=== PATIENT | male | born 1970 | race Caucasian/White ===

== ENCOUNTER 2020-03-26 12:40 | Emergency (ER) | payer BC ==
[2020-03-26 14:24] LABS: Absolute Lymphocytes (CBC) 1.8 K/uL (0.7-4.9); Hematocrit 48.2 % (39.6-49.0); Lymphocytes % 12.6 % (15.3-44.8); MPV 8.5 fL (7.6-11.3); RBC Red Blood Cell Count 5.06 M/uL (4.33-5.43)
[2020-03-26 14:50] LABS: ALT/SGPT 240 U/L (12-78); AST/SGOT 103 U/L (15-37); Alkaline Phosphatase 203 U/L (45-117); BUN Blood Urea Nitrogen 8 mg/dL (7-18); Bicarbonate 22 mmol/L (21-32); Bilirubin Direct 0.4 mg/dL (0-0.2); Bilirubin Total 1.6 mg/dL (0.2-1.0); Glucose Level 164 mg/dL (74-106); Potassium 4.1 mmol/L (3.5-5.1); Protein, Total 8.3 g/dL (6.4-8.2); Sodium Level 137 mmol/L (136-145)
[2020-03-26] MEDS ORDERED: ONDANSETRON 4 MG/2 ML VIAL ONE (15:05)
[2020-03-26] MEDS ORDERED: NA CHLORIDE 0.9% 1,000 ML ONE (15:05)
[2020-03-26] MEDS ORDERED: FAMOTIDINE 20 MG/2 ML VIAL IV ONE (15:06)
[2020-03-26 15:20] LABS: Protime INR 1.08
--- NOTE | 2020-03-26 16:14 | RAD REPORT ---
EXAM DESCRIPTION: RAD - Chest Single View - 03/26/2020 3:36 pm CLINICAL HISTORY: Cough;Dyspnea COMPARISON: None TECHNIQUE: AP portable chest image was obtained 03/26/2020 3:36 pm . FINDINGS: Lungs are clear. Heart and vasculature are normal. No measurable pleural effusion and no p neumothorax. No acute bony abnormality seen. No acute aortic findings suspected. IMPRESSION: No acute cardiopulmonary process.
--- NOTE | 2020-03-26 17:05 | RAD REPORT ---
EXAM DESCRIPTION: CT - Abdomen Pelvis W Contrast - 03/26/2020 4:21 pm CLINICAL HISTORY: ABD PAIN COMPARISON: No comparisons TECHNIQUE: Biphasic, helical CT imaging of the abdomen and pelvis was performed following 100 ml non -ionic IV contrast. No oral contrast given. All CT scans are performed using dose optimization technique as appropriate and may include automated exposure control or mA/KV adjustment according to patient size. FINDINGS: No suspicious findings in the lung bases. Diffuse fatty infiltration of the liver present focal liver lesion. No portal vein abnormality. Pancr eas and spleen show no suspicious findings. Gallbladder and biliary tree are also without suspicious finding. Symmetric renal function is seen with no hydronephrosis or suspicious renal mass. No pyelonephritis o r acute parenchymal process. No bladder abnormalities. No adrenal abnormalities. No dilated bowel loops or bowel wall thickening. Appendix is normal. No free air, free fluid or infla mmatory stranding. No hernia, mass or bulky lymphadenopathy. No suspicious bony findings. IMPRESSION: Contrast enhanced CT abdomen and pelvis showing no acute or emergent finding. Diffuse fatty infiltration of the liver.
--- NOTE | 2020-03-26 17:23 | EDPHYS ---
Physician Documentation [facility] Name: Seth Doyle Age: 49 yrs Sex: Male : 1970 Arrival Date: 03/26/2020 Time: 12:43 Bed 10 Private MD: ED Physician Ba Farfan HPI: 03/26 14:15 This 49 yrs old Male presents to ER via Wheelchair with complaints of Asthma kb Exacerbation, Alcohol Withdrawal. 14:15 The patient or guardian reports cough, that is intermittent, described as mild, kb difficulty breathing, flu symptoms, myalgias. Onset: The symptoms/episode began/occurred this morning. Severity of symptoms: At their worst the symptoms were moderate, in the emergency department the symptoms are unchanged. Modifying factors: The symptoms are alleviated by nothing, the symptoms are aggravated by nothing. Associated signs and symptoms: Pertinent positives: nausea, vomiting, Pertinent negatives: chest pain, diarrhea, ear ache, fever, rhinorrhea, sore throat. The patient has not experienced similar symptoms in the past. The patient has not recently seen a physician. Pt reports malaise, cough, shortness of breath, headache, nausea and vomiting that started this morning. States "I think I drank too much yesterday.". Historical: - Allergies: 12:51 No Known Allergies; iw - Home Meds: 12:51 Ventolin Rotahaler/Rotacaps Inhl daily [Active]; citalopram oral [Active]; iw - PMHx: 12:51 Asthma; iw - PSHx: 12:51 wrist; iw - Social history:: Smoking status: Patient denies any tobacco usage or history of. Patient uses alcohol. ROS: 14:14 ENT: Negative for injury, pain, and discharge, Cardiovascular: Negative for chest pain, kb palpitations, and edema, Back: Negative for injury and pain, MS/Extremity: Negative for injury and deformity, Skin: Negative for injury, rash, and discoloration. 14:14 Constitutional: Positive for chills, malaise. 14:14 Respiratory: Positive for cough, shortness of breath. 14:14 Abdomen/GI: Positive for nausea and vomiting. 14:14 Neuro: Positive for headache. Exam: 14:14 Head/Face: Normocephalic, atraumatic. Chest/axilla: Normal chest wall appearance and kb motion. Nontender with no deformity. No lesions are appreciated. Cardiovascular: Regular rate and rhythm with a normal S1 and S2. No gallops, murmurs, or rubs. Normal PMI, no JVD. No pulse deficits. Respiratory: Lungs have equal breath sounds bilaterally, clear to auscultation and percussion. No rales, rhonchi or wheezes noted. No increased work of breathing, no retractions or nasal flaring. Abdomen/GI: Soft, non-tender, with normal bowel sounds. No distension or tympany. No guarding or rebound. No evidence of tenderness throughout. Skin: Warm, dry with normal turgor. Normal color with no rashes, no lesions, and no evidence of cellulitis. MS/ Extremity: Pulses equal, no cyanosis. Neurovascular intact. Full, normal range of motion. Neuro: Awake and alert, GCS 15, oriented to person, place, time, and situation. Cranial nerves II-XII grossly intact. Motor strength 5/5 in all extremities. Sensory grossly intact. Cerebellar exam normal. Normal gait. 14:14 Constitutional: The patient appears alert, awake, uncomfortable. Vital Signs: 12:47 BP 146 / 105; Pulse 110; Resp 20 S; Temp 99.1; Pulse Ox 97% on R/A; Weight 97.52 kg; iw Height 6 ft. 1 in. (185.42 cm); 15:00 BP 146 / 100; Pulse 115; Resp 20 S; Pulse Ox 97% on R/A; iw 17:29 BP 164 / 100; Pulse 90; Resp 18 S; Pulse Ox 97% on R/A; iw 12:47 Body Mass Index 28.37 (97.52 kg, 185.42 cm) iw MDM: 14:02 Patient medically screened. kb 14:13 Data reviewed: vital signs, nurses notes. Data interpreted: Pulse oximetry: on room air kb is 97 %. Interpretation: normal. 17:21 Counseling: I had a detailed discussion with the patient and/or guardian regarding: the kb historical points, exam findings, and any diagnostic results supporting the discharge/admit diagnosis, lab results, radiology results, the need for outpatient follow up, a family practitioner, to return to the emergency department if symptoms worsen or persist or if there are any questions or concerns that arise at home. ED course: Pt requests a neb treatment because his inhaler is empty. Will prescribe new inhaler. Educated on elevated liver enzymes. Pt states he is aware and takes milk thistle. 03/26 14:03 Order name: Acetaminophen kb 03/26 14:03 Order name: Basic Metabolic Panel kb 03/26 14:03 Order name: CBC with Diff; Complete Time: 14:29 kb 03/26 14:03 Order name: ETOH Level; Complete Time: 14:51 kb 03/26 14:03 Order name: Hepatic Function; Complete Time: 14:51 kb 03/26 14:03 Order name: PT-INR; Complete Time: 15:24 kb 03/26 14:03 Order name: Ptt, Activated; Complete Time: 15:24 kb 03/26 14:03 Order name: Salicylate; Complete Time: 15:14 kb 03/26 14:03 Order name: Chest Single View XRAY; Complete Time: 16:15 kb 03/26 14:04 Order name: Acetaminophen Level; Complete Time: 14:51 EDMS 03/26 14:04 Order name: Basic Metabolic Panel; Complete Time: 14:51 EDMS 03/26 15:46 Order name: SARS-COV-2 RT PCR; Complete Time: 15:49 EDMS 03/26 15:50 Order name: CT Abd/Pelvis - IV Contrast Only; Complete Time: 17:08 kb 03/26 14:03 Order name: EKG; Complete Time: 14:04 kb 03/26 14:03 Order name: EKG - Nurse/Tech; Complete Time: 14:07 kb 03/26 14:03 Order name: IV Saline Lock; Complete Time: 14:07 kb 03/26 14:03 Order name: Labs collected and sent; Complete Time: 14:08 kb 03/26 14:03 Order name: Urine Dipstick-Ancillary (obtain specimen) kb 03/26 14:26 Order name: Labs - recollect needed: blue top not filled all the way; Complete Time: bd 15:00 03/26 17:13 Order name: Vital Signs; Complete Time: 17:29 kb Administered Medications: 15:00 Drug: Pepcid 20 mg Route: IVP; Site: left antecubital; iw 15:01 Drug: NS 0.9% 1000 ml Route: IV; Rate: 1000 ml; Site: left antecubital; iw 15:01 Drug: Zofran (Ondansetron) 4 mg Route: IVP; Site: left antecubital; iw 17:29 Drug: Albuterol 2.5 mg Route: Inhalation; Disposition: 18:22 Co-signature as Attending Physician, Ba Farfan MD. ma2 Disposition: 03/26/20 17:23 Discharged to Home. Impression: Abnormal results of liver function studies, Acute upper respiratory infection, unspecified. - Condition is Stable. - Discharge Instructions: Upper Respiratory Infection, Adult, [id number], Alcoholic Liver Disease, [id number]. - Prescriptions for Ventolin HFA 90 mcg/actuation Inhalation HFA aerosol inhaler - inhale 2 puff by INHALATION route every 4 hours; 1 Inhaler. - Medication Reconciliation Form, Thank You Letter, Antibiotic Education, Prescription Opioid Use form. - Follow up: Emergency Department; When: As needed; Reason: Worsening of condition. Follow up: Private Physician; When: 2 - 3 days; Reason: Recheck today's complaints, Continuance of care, Re-evaluation by your physician. Signatures: Dispatcher [employer] [facility] Bebe Malcolm, SECRETARIAL STENOGRAPHER-C SECRETARIAL STENOGRAPHER-CkGabriella Mckoy Irene, Ba Ram RN, MD MD ma2 Corrections: (The following items were deleted from the chart) 14:37 13:47 CORONAVIRUS+Z ordered. [facility] 18:20 17:23 03/26/2020 17:23 Discharged to Home. Impression: Abnormal results of liver iw function studies; Acute upper respiratory infection, unspecified. Condition is Stable. Forms are Medication Reconciliation Form, Thank You Letter, Antibiotic Education, Prescription Opioid Use. Follow up: Emergency Department; When: As needed; Reason: Worsening of condition. Follow up: Private Physician; When: 2 - 3 days; Reason: Recheck today's complaints, Continuance of care, Re-evaluation by your physician. kb
--- NOTE | 2020-03-26 17:23 | ER ---
Nurse's Notes [facility] Name: Seth Doyle Age: 49 yrs Sex: Male : 1970 Arrival Date: 03/26/2020 Time: 12:43 Bed 10 Private MD: Diagnosis: Abnormal results of liver function studies;Acute upper respiratory infection, unspecified Presentation: 03/26 12:47 Chief complaint: Patient states: spent the night in [place] and it was 55 degrees and woke iw up this morning and was coughing and sick, was dry heaving and has heart burn that's making him throw up, also thinks he may be withdrawing from ETOH, last drink was yesterday but had not had a drink in two weeks. Coronavirus screen: chills, cough unrelated to allergies. Ebola Screen: Patient negative for fever greater than or equal to 101.5 degrees Fahrenheit, and additional compatible Ebola Virus Disease symptoms Patient denies exposure to infectious person. Patient denies travel to an Ebola-affected area in the 21 days before illness onset. No symptoms or risks identified at this time. Initial Sepsis Screen: Does the patient meet any 2 criteria? No. Patient's initial sepsis screen is negative. Does the patient have a suspected source of infection? No. Patient's initial sepsis screen is negative. Risk Assessment: Do you want to hurt yourself or someone else? Patient reports no desire to harm self or others. Onset of symptoms was March 26, 2020. 12:47 Method Of Arrival: Wheelchair iw 12:47 Acuity: GREGORY 2 iw Historical: - Allergies: 12:51 No Known Allergies; iw - Home Meds: 12:51 Ventolin Rotahaler/Rotacaps Inhl daily [Active]; citalopram oral [Active]; iw - PMHx: 12:51 Asthma; iw - PSHx: 12:51 wrist; iw - Social history:: Smoking status: Patient denies any tobacco usage or history of. Patient uses alcohol. Screenin:14 Abuse screen: Denies threats or abuse. Denies injuries from another. Nutritional iw screening: No deficits noted. Tuberculosis screening: No symptoms or risk factors identified. Fall Risk IV access (20 points). Assessment: 14:13 General: Appears in no apparent distress. uncomfortable, Behavior is cooperative, iw anxious. Pain: Complains of pain in abdomen Quality of pain is described as burning. Neuro: Level of Consciousness is awake, alert, obeys commands. GI: Reports upper abdominal pain, nausea, vomiting. Derm: Skin is intact, is healthy with good turgor. Musculoskeletal: Range of motion: intact in all extremities. 15:25 Reassessment: Patient appears in no apparent distress at this time. Patient and/or iw family updated on plan of care and expected duration. Pain level reassessed. pt medicated, IV fluids infusing, pt states he still just doen't feel good, taken to xray. 16:00 Reassessment: Patient appears in no apparent distress at this time. Patient and/or iw family updated on plan of care and expected duration. Pain level reassessed. Patient is alert, oriented x 3, equal unlabored respirations, skin warm/dry/pink. pt talking on phone, pt advised that he will need a Ct done. Vital Signs: 12:47 BP 146 / 105; Pulse 110; Resp 20 S; Temp 99.1; Pulse Ox 97% on R/A; Weight 97.52 kg; iw Height 6 ft. 1 in. (185.42 cm); 15:00 BP 146 / 100; Pulse 115; Resp 20 S; Pulse Ox 97% on R/A; iw 17:29 BP 164 / 100; Pulse 90; Resp 18 S; Pulse Ox 97% on R/A; iw 12:47 Body Mass Index 28.37 (97.52 kg, 185.42 cm) iw ED Course: 12:43 Patient arrived in ED. as 12:50 Triage completed. iw 14:02 Bebe Malcolm FNP-C is PHCP. kb 14:02 Ba Farfan MD is Attending Physician. kb 14:13 Arm band placed on. iw 14:13 Initial lab(s) drawn, by me, sent to lab. Inserted saline lock: 20 gauge in left iw antecubital area, using aseptic technique. Blood collected. 15:00 Hina Arboleda, RN is Primary Nurse. iw 15:36 Chest Single View XRAY In Process Unspecified. EDMS 16:21 CT Abd/Pelvis - IV Contrast Only In Process Unspecified. EDMS Administered Medications: 15:00 Drug: Pepcid 20 mg Route: IVP; Site: left antecubital; iw 15:01 Drug: NS 0.9% 1000 ml Route: IV; Rate: 1000 ml; Site: left antecubital; iw 15:01 Drug: Zofran (Ondansetron) 4 mg Route: IVP; Site: left antecubital; iw 17:29 Drug: Albuterol 2.5 mg Route: Inhalation; iw Outcome: 17:23 Discharge ordered by MD. randall 18:20 Patient left the ED. iw Signatures: Dispatcher [employer] EDMS Bebe Malcolm, MORIAH ALTAMIRANO-Zenaida Alexandra Irene, RN RN iw Corrections: (The following items were deleted from the chart) 12:51 12:47 Acuity: GREGORY 3 iw iw 15:00 15:00 BP 146 / 111; Pulse 115bpm; Resp 20bpm; Spontaneous; Pulse Ox 97% RA; iw iw
[2020-03-26] MEDS ORDERED: LEVALBUTEROL 1.25 MG/3 ML NEB ONE (17:42)
[2020-03-26 18:40] VITALS: TEMP 99.1; O2SAT 97
[2020-03-26 18:43] VITALS: BP 164/100
--- NOTE | 2020-03-27 12:18 | EKG ---
Test Date: 2020-03-26 Test Time: 13:58:52 Business Risk Analyst: JULIO CESAR MEASUREMENT RESULTS: Intervals: Rate: 116 SC: 130 QRSD: 82 QT: 330 QTc: 458 [place]: P: 49 SC: 130 QRS: 62 T: 52 INTERPRETIVE STATEMENTS: Sinus tachycardia Otherwise normal ECG No previous ECG available for comparison Electronically Signed On 03-27-20 12:15:29 INFORMATION SECURITY ASSOCIATE by Javad Guerrero
== END 2020-03-26 18:20 | disposition home or self-care (01) ==
LOC: ER 12:40
DX: J06.9 Acute upper respiratory infection, unspecified (principal); R94.5 Abnormal results of liver function studies; Z20.822 Contact with and (suspected) exposure to COVID-19; J45.909 Unspecified asthma, uncomplicated
CPT/HCPCS: 93005; 85025; 80048; 36415; 80320; 80329 ×2; 85610; 80076; 85730; 74177; 71045; U0003; Q9967; J7030; J2405; 96374; 96375; 99284

== ENCOUNTER 2020-06-17 11:14 | Emergency (ER) | payer BC ==
--- OUTSIDE RECORDS SUMMARY | 2020-06-17 11:18 | XMS REPORT | Continuity of Care Document ---
:1970 [facility] t Address [address] [place] [address] Care Team Providers Name Role Phone Unavailable Unavailable Unavailable Payers Payer Name Policy Type Policy Number Effective Date Expiration Date S ource Problems This patient has no known problems. Allergies, Adverse Reactions, Alerts Allergy Allergy Status Severity Reaction(s) Onset Inactive Treating Comm ents Source Name Type Date Date Clinician No Known DA Active U [facility]ie 3-02 Clear s 00:00: Collins 00 [facility] No Known DA Active U 2001-0 [facility] Contrast 9 Clear Allergie 00:00: Collins s [facility] No Known DA Active U 2001-0 [facility] Drug 11-21 Clear Allergie 00:00: Collins s 00 [facility] No Known DA Active U 2001-0 [facility] Food 11-21 Clear Allergie 00:00: Collins s [facility] No Known DA Active U 2001-0 [facility] Other -30 Clear Allergie 00:00: Collins s [facility] Medications This patient has no known medications. Procedures This patient has no known procedures. Encounters Start End Encounter Admission Attending Care Care Encounter Source Date/Time Date/Time Type Type Clinicians Facility Department ID 2018-10-11 2018-10-11 Emergency E [facility] [address] 16:09:00 16:09:00 estelle Field Sherley mccabe Results Test Description Test Time Test Comments Results Result Comments Source GLUBED 2020-04-30 00:58:00 Test Item Value Reference Range Interpretation Comme nts GLUBED (test code = GLUBED) 138 MG/DL 70-110 H Performed by certified rug drying machine operator at [facility] [id number] 17:36:00 Test Item Value Reference Range Interpretation Comments GLUBED (test code = 135 MG/DL 70-110 H Performe d by certified GLUBED) rug drying machine operator at [facility] [id number] 12:02:00 Test Item Value Reference Range Interpretation Comments GLUBED (test code = 104 MG/DL 70-110 N Performe d by certified GLUBED) rug drying machine operator at [facility] [id number] 08:59:00 Test Item Value Reference Range Interpretation Comments GLUBED (test code = 124 MG/DL 70-110 H Performe d by certified GLUBED) rug drying machine operator at [facility] - XR ELBOW 2 VIEWS [id number] 09:40:00 [facility] 1970 Sex: M FAX: Marychuy Del Rio NP [phone] [place]: St: [facility] FAX: Levy Hartman I [phone] Name: BARRETT NEAL [facility] : 1970 Age/S: 49/M [address] [place] [address] Unit #: [id number] Loc: [place] [address] Phys: Marychuy Del Rio NP Acct: [id number] Dis Date: Status: ADM IN PHONE #: [phone] Exam Date: 04/26/2020 0902 FAX #: [phone]: LEFT ELBOW PAIN AND SWELLING EXAMS: CPT CODE: [id number] XR ELBOW [address] [place] [id number] Left elbow 2 views 04/27/2020 HISTORY: Left elbow pain and swelling FINDINGS: Moderate joint effusion is present. Olecranon spur is noted. There is no displaced fracture identified. No aggressive lesion is present. No periosteal reaction is noted. IMPRESSION: 1. Moderate joint effusion may represent occult fracture or septic joint. 2. Mild degenerative changes. 3. No visible fracture identified. No disloc ation. SL: [id number] at 0940 Reported and signed by: Saurav Hayward M.D. CC: Marychuy Del Rio TEAM PSYCHOLOGIST; Levy Holt MD Technologist: RT [employer]upo(R) Trnscrd Date/Time/By: 04/27/2020 (7760) : By: [email or web address] [facility] Print D/T: S: 04/27/2020 (1412) PAGE 1 Signed ReportCBC W/AUTO [id number] 08:15:00 Test Item Value Reference Range Interpretation Comments WHITE BLOOD CELL (test code = 9.4 x10 3/uL 4.5-11.0 N WBC) RED BLOOD CELL (test code = 3.86 x10 6/uL 4.00-5.60 L RBC) HEMOGLOBIN (test code = HGB) 13.1 g/dL 12.5-16.9 N HEMATOCRIT (test code = HCT) 37.5 % 37.5-50.7 N MEAN CELL VOLUME (test code = 97.2 fL 81.0-99.0 N MCV) MEAN CELL HGB (test code = MCH) 33.9 pg 27.0-33.0 H MEAN CELL HGB CONCETRATION 34.9 g/dL 33.0-37.0 N (test code = MCHC) RED CELL DISTRIBUTION WIDTH CV 14.6 % 11.5-14.5 H (test code = RDW) RED CELL DISTRIBUTION WIDTH SD 51.4 fL 37.0-54.0 N (test code = RDW-SD) PLATELET COUNT (test code = 149 x10 3/uL 150-400 L PLT) MEAN PLATELET VOLUME (test code 11.0 fL 7.0-9.0 H = MPV) NEUTROPHIL % (test code = NT%) 68.7 % 56.0-77.0 N IMMATURE GRANULOCYTE % (test 0.4 % 0.0-2.0 N code = IG%) LYMPHOCYTE % (test code = LY%) 16.0 % 14.0-32.0 N MONOCYTE % (test code = MO%) 11.2 % 4.8-9.0 H EOSINOPHIL % (test code = EO%) 3.1 % 0.3-3.7 N BASOPHIL % (test code = BA%) 0.6 % 0.0-2.0 N NUCLEATED RBC % (test code = 0.0 % 0-0 N NRBC%) NEUTROPHIL # (test code = NT#) 6.46 x10 3/uL 2.0-7.6 N IMMATURE GRANULOCYTE # (test 0.04 x10 3/uL 0.00-0.03 H code = IG#) LYMPHOCYTE # (test code = LY#) 1.50 x10 3/uL 1.0-3.8 N MONOCYTE # (test code = MO#) 1.05 x10 3/uL 0.1-0.8 H EOSINOPHIL # (test code = EO#) 0.29 x10 3/uL 0.0-0.2 H BASOPHIL # (test code = BA#) 0.06 x10 3/uL 0.0-0.2 N NUCLEATED RBC # (test code = 0.00 x10 3/uL 0.0-0.1 N NRBC#) MANUAL DIFF REQUIRED (test code NO = MDIFF) CBC W/AUTO [id number] 08:06:00 Test Item Value Reference Range Interpretation Comments WHITE BLOOD CELL (test code = WBC) x10 3/uL 4.5-11.0 RED BLOOD CELL (test code = RBC) x10 6/uL 4.00-5.60 HEMOGLOBIN (test code = HGB) 13.1 g/dL 12.5-16.9 N HEMATOCRIT (test code = HCT) 37.5 % 37.5-50.7 N MEAN CELL VOLUME (test code = MCV) fL 81.0-99.0 MEAN CELL HGB (test code = MCH) pg 27.0-33.0 MEAN CELL HGB CONCETRATION (test g/dL 33.0-37.0 code = MCHC) RED CELL DISTRIBUTION WIDTH CV % 11.5-14.5 (test code = RDW) PLATELET COUNT (test code = PLT) x10 3/uL 150-400 NEUTROPHIL % (test code = NT%) % 56.0-77.0 LYMPHOCYTE % (test code = LY%) % 14.0-32.0 NEUTROPHIL # (test code = NT#) x10 3/uL 2.0-7.6 LYMPHOCYTE # (test code = LY#) x10 3/uL 1.0-3.8 MANUAL DIFF REQUIRED (test code = MDIFF) BASIC METABOLIC [id number] 08:01:00 Test Item Value Reference Range Interpretation Comments SODIUM (test code = NA) 131 mEq/L 134-147 L POTASSIUM (test code = 3.4 mEq/L 3.4-5.0 N K) CHLORIDE (test code = 100 mEq/L 100-108 N CL) CARBON DIOXIDE (test 21 mEq/l 21-33 N code = CO2) ANION GAP (test code = 14 0-20 N GAP) GLUCOSE (test code = 76 mg/dL 70-110 N GLU) BLOOD UREA NITROGEN 6 mg/dL 7-18 L (test code = BUN) GLOMERULAR FILTRATION 142.6 90-95 H Units of measure = RATE (test code = GFR) ml/mi n/1.73 m2 CREATININE (test code = 0.6 mg/dL 0.6-1.3 N CREAT) CALCIUM (test code = 7.9 mg/dL 8.0-10.5 L CA) LIPID PROFILE (CORONARY RISK)2020-04-27 08:01:00 Test Item Value Reference Range Interpretation Comments TRIGLYCERIDES (test 204 mg/dL 40-150 H code = TRIG) CHOLESTEROL (test 207 mg/dL <200 H code = CHOL) CHOLESTEROL/HDL 8.73 RATIO 3.43-4.97 H RISK ASSOCIA YOSVANY WITH RATIO (test code = CHOL/HDL RATIOS: CHOLHDL) RISK MALE FEMALE1/2 A VERAGE 3.43 3.27AVERAGE 4.97 4.[address] RAGE 23.39 11.04 NOTE THAT THE REFERENCE VALUE IS RELATEDTO RISK LEVELS RECOMMENDED BY THE NATL.HEART, CYN G, AND BLOOD INST. HDL CHOLESTEROL 23.7 mg/dL 32-72 L (test code = HDL) LIPOPROTEIN LDL 214.3 mg/dL 0-100 H <100 (test code = LDL) [id number] -129 NEAR OPTIMAL/ABOVE [id number] 89 HIGH>FM=433 VE RY HIGH*Guidelines provided by the National Choles terol EducationProgra m Adult Treatment Panel III LACTIC [id number] 23:22:00 Test Item Value Reference Range Interpretation Comments LACTIC ACID (test code = LACT) 0.8 mmol/L 0.4-1.9 N URIC [id number] 23:22:00 Test Item Value Reference Range Interpretation Comments URIC ACID (test code = URIC) 5.1 mg/dL 2.6-7.2 N LACTIC [id number] 18:18:00 Test Item Value Reference Range Interpretation Comments LACTIC ACID (test code = LACT) 2.0 mmol/L 0.4-1.9 H LACTIC ACID 2ND [id number] 14:36:00 Test Item Value Reference Range Interpretation Comments LACTIC ACID 2ND REPEAT (test code 1.8 mmol/L 0.4-1.9 N = LACT2) LACTIC ACID [id number] 12:01:00 Test Item Value Reference Range Interpretation Comments LACTIC ACID REPEAT (test code = 2.3 mmol/l 0.4-1.9 H LACTR) LACTIC [id number] 09:39:00 Test Item Value Reference Range Interpretation Comments LACTIC ACID (test code = LACT) 3.4 mmol/L 0.4-1.9 H COMPREHENSIVE METABOLIC [id number] 09:12:00 Test Item Value Reference Range Interpretation Comments SODIUM (test code = NA) 137 mEq/L 134-147 N POTASSIUM (test code = 4.0 mEq/L 3.4-5.0 K) CHLORIDE (test code = 103 mEq/L 100-108 N CL) CARBON DIOXIDE (test 20 mEq/l 21-33 L code = CO2) ANION GAP (test code = 18 0-20 N GAP) GLUCOSE (test code = 128 mg/dL 70-110 H GLU) BLOOD UREA NITROGEN 7 mg/dL 7-18 N (test code = BUN) GLOMERULAR FILTRATION 89.3 90-95 L Units of measure = RATE (test code = GFR) ml/mi n/1.73 m2 CREATININE (test code = 0.9 mg/dL 0.6-1.3 N CREAT) TOTAL PROTEIN (test 5.8 g/dL 6.4-8.2 L code = PROT) ALBUMIN (test code = 2.90 g/dL 3.4-5.0 L ALB) CALCIUM (test code = 7.4 mg/dL 8.0-10.5 L CA) BILIRUBIN TOTAL (test 2.10 mg/dL 0.0-1.0 H code = BILT) SGOT/AST (test code = 251 IUnit/L 15-37 H AST) SGPT/ALT (test code = 204 IUnit/L 30-65 H ALT) ALKALINE PHOSPHATASE 172 IUnit/L 20-125 H TOTAL (test code = ALKP) CBC W/AUTO [id number] 08:58:00 Test Item Value Reference Range Interpretation Comments WHITE BLOOD CELL (test code = 7.5 x10 3/uL 4.5-11.0 N WBC) RED BLOOD CELL (test code = 4.13 x10 6/uL 4.00-5.60 N RBC) HEMOGLOBIN (test code = HGB) 13.6 g/dL 12.5-16.9 N HEMATOCRIT (test code = HCT) 40.7 % 37.5-50.7 N MEAN CELL VOLUME (test code = 98.5 fL 81.0-99.0 N MCV) MEAN CELL HGB (test code = MCH) 32.9 pg 27.0-33.0 N MEAN CELL HGB CONCETRATION 33.4 g/dL 33.0-37.0 N (test code = MCHC) RED CELL DISTRIBUTION WIDTH CV 15.5 % 11.5-14.5 H (test code = RDW) RED CELL DISTRIBUTION WIDTH SD 56.0 fL 37.0-54.0 H (test code = RDW-SD) PLATELET COUNT (test code = 307 x10 3/uL 150-400 N PLT) MEAN PLATELET VOLUME (test code 10.4 fL 7.0-9.0 H = MPV) NEUTROPHIL % (test code = NT%) 67.8 % 56.0-77.0 N IMMATURE GRANULOCYTE % (test 0.4 % 0.0-2.0 N code = IG%) LYMPHOCYTE % (test code = LY%) 22.9 % 14.0-32.0 N MONOCYTE % (test code = MO%) 8.3 % 4.8-9.0 N EOSINOPHIL % (test code = EO%) 0.1 % 0.3-3.7 L BASOPHIL % (test code = BA%) 0.5 % 0.0-2.0 N NUCLEATED RBC % (test code = 0.0 % 0-0 N NRBC%) NEUTROPHIL # (test code = NT#) 5.06 x10 3/uL 2.0-7.6 N IMMATURE GRANULOCYTE # (test 0.03 x10 3/uL 0.00-0.03 N code = IG#) LYMPHOCYTE # (test code = LY#) 1.71 x10 3/uL 1.0-3.8 N MONOCYTE # (test code = MO#) 0.62 x10 3/uL 0.1-0.8 N EOSINOPHIL # (test code = EO#) 0.01 x10 3/uL 0.0-0.2 N BASOPHIL # (test code = BA#) 0.04 x10 3/uL 0.0-0.2 N NUCLEATED RBC # (test code = 0.00 x10 3/uL 0.0-0.1 N NRBC#) MANUAL DIFF REQUIRED (test code NO = MDIFF) CBC W/AUTO [id number] 08:57:00 Test Item Value Reference Range Interpretation Comments WHITE BLOOD CELL (test code = x10 3/uL 4.5-11.0 WBC) RED BLOOD CELL (test code = RBC) x10 6/uL 4.00-5.60 HEMOGLOBIN (test code = HGB) 13.6 g/dL 12.5-16.9 N HEMATOCRIT (test code = HCT) 40.7 % 37.5-50.7 N MEAN CELL VOLUME (test code = fL 81.0-99.0 MCV) MEAN CELL HGB (test code = MCH) pg 27.0-33.0 MEAN CELL HGB CONCETRATION (test g/dL 33.0-37.0 code = MCHC) RED CELL DISTRIBUTION WIDTH CV % 11.5-14.5 (test code = RDW) PLATELET COUNT (test code = PLT) 307 x10 3/uL 150-400 N NEUTROPHIL % (test code = NT%) % 56.0-77.0 LYMPHOCYTE % (test code = LY%) % 14.0-32.0 NEUTROPHIL # (test code = NT#) x10 3/uL 2.0-7.6 LYMPHOCYTE # (test code = LY#) x10 3/uL 1.0-3.8 MANUAL DIFF REQUIRED (test code = MDIFF) - CTA CHEST FOR [id number] 07:45:00 [facility] 1970 Sex: M Name: BARRETT NEAL [facility] : Age/S: 49 / M [address] [place] [address] Unit #: [id number] Loc: [place] [address] Phys: Marychuy Del Rio TEAM PSYCHOLOGIST Acct: [id number] Dis Date: Status: ADM IN PHONE #: [phone] Exam Date: 04/24/2020720 FAX #: [phone]: R/O PE EXAMS: CPT CODE: [id number] [place] [id number] PROCEDURE: CTA CHEST INDICATION: Septic shock, lactic acidosis. Hypokalemia COMPARISON: X-ray 04/23/2020 TECHNIQUE: CTA of the pulmonary arteries was performed with 100 ml Isovue 300 intravenous contrast. Helical imaging performed apices to the lung bases. Multiplanar and 3-D MIP angiographic reconstructions are reviewed. CT imaging performed at this location utilizes radiation dose optimization techniques which include oneor more of the following: - Automated exposure control -Adjustment of the mA and/or kV according to patient size -Use of iterative reconstruction technique CT Radiation Dose DLP 373.41 mGy-cm FINDINGS: PULMONARY ARTERIES: There is a filling defect in the right lower lobe medial basal segment seen on coronal image 57 and axial image 93. No embolus in the left pulmonary arteries identified. MEDIASTINUM: The thoracic aorta is normal. The mediastinal contents are normal. LUNGS: Ill-defined opacity in the right lower lobe is noted. Left lung is clear. UPPER ABDOMEN: Survey may be limited by early phase of contrast enhancement. Decreased density is compatible with fatty infiltration. MUSCULOSKELETAL: The skeleton is intact. IMPRESSION: 1. Small pulmonary embolus in medial basal segment of right lower lobe. 2. Small right base opacity, either pneumonia, atelectasis, or infarct. 3. Fatty infiltration of liver. Findings were discussed with JULISA Del Rio by Dr. Hayward at 7:40 AM on 04/24/2020. SL: [id number] PAGE 1 Signed Report (CONTINUED) Name: BARRETT NEAL [facility] : 1970 Age/S: 49 / M [address] [place] [address] Blvd Unit #: [id number] Loc: [place] [address] Phys: Marychuy Del Rio NP Acct: [id number] Dis Date: Status: ADM IN PHONE #: [phone] Exam Date: 04/24/2020720 FAX #: [phone] Reason: R/O PE EXAMS: CPT CODE: [id number] [place] [id number] <Continued> at 0745 Reported and signed by: Saurav Hayward M.D. CC: Marychuy Del Rio NP; Levy Holt MD Technologist:Anselmo Alas, RT(R) CTDI: DLP: Trnscb Date/Time: 04/24/2020 (0745) [id number] Orig Print D/T: S: 04/24/2020 (0749) PAGE 2 Signed Report [id number] 06:30:00 Test Item Value Reference Range Interpretation Comments TROPONIN-I 0.020 ng/mL 0.000-0.045 N Negative: <= (test code = 0.045 Positive: TROPI) >= 0.046 Correl ation with serial results, other cardiac markers andclin ical findings is necessary to determine the clinicalsignifi cance of this result. Results using different metho dologies should not be c omparedto one another as ramesh titative results may fabiola y by method. UA RFLX MICR CULT IF [id number] 03:35:00 Test Item Value Reference Range Interpretation Comments UA COLOR (test code = COLU) YELLOW YEL/STRAW UA APPEARANCE (test code = APPU) CLEAR CLEAR UA GLUCOSE DIPSTICK (test code = NEGATIVE NEGATIVE DGLUU) UA BILIRUBIN DIPSTICK (test code NEGATIVE NEGATIVE = BILU) UA KETONE DIPSTICK (test code = NEGATIVE NEGATIVE KETU) UA SPECIFIC GRAVITY (test code = 1.030 1.005-1.030 N SGU) UA BLOOD DIPSTICK (test code = NEGATIVE NEGATIVE FIGUEROA) UA PH DIPSTICK (test code = JOHNATHAN) 7.0 5.0-7.0 N UA PROTEIN DIPSTICK (test code = NEGATIVE NEGATIVE PROU) UA UROBILINIOGEN DIPSTICK (test 0.2 mg/dL 0.2-1.0 code = URO) UA NITRITE DIPSTICK (test code = NEGATIVE NEGATIVE HALLE) UA LEUKOCYTE ESTERASE DIPSTICK NEGATIVE NEGATIVE (test code = LEUU) UA WBC (test code = WBCU) 0-3 WBC/HPF 0-3 UA RBC (test code = RBCU) 0-3 RBC/HPF 0-3 UA WBC NO REFLEX (test code = 0-3 WBC/HPF 0-3 WBCUCL) UA BACTERIA (test code = BACU) TRACE /HPF NONE SEEN UA SQUAMOUS CELLS (test code = 0-5 /HPF NONE SEEN SQU) UA HYALINE CAST (test code = 0-2 /LPF NONE SEEN HYALU) Indication for culture: RiskForSepsis-no oth srcSpecimen Description: CLEAN CATCHCOMPREHENSIVE METABOLIC [id number] 01:59:00 Test Item Value Reference Range Interpretation Comments SODIUM (test code = NA) 137 mEq/L 134-147 N POTASSIUM (test code = 3.3 mEq/L 3.4-5.0 L K) CHLORIDE (test code = 99 mEq/L 100-108 L CL) CARBON DIOXIDE (test 23 mEq/l 21-33 N code = CO2) ANION GAP (test code = 19 0-20 N GAP) GLUCOSE (test code = 109 mg/dL 70-110 GLU) BLOOD UREA NITROGEN 7 mg/dL 7-18 N (test code = BUN) GLOMERULAR FILTRATION 79.1 90-95 L Units of measure = RATE (test code = GFR) ml/mi n/1.73 m2 CREATININE (test code = 1.0 mg/dL 0.6-1.3 N CREAT) TOTAL PROTEIN (test 6.2 g/dL 6.4-8.2 L code = PROT) ALBUMIN (test code = 3.10 g/dL 3.4-5.0 L ALB) CALCIUM (test code = 7.9 mg/dL 8.0-10.5 L CA) BILIRUBIN TOTAL (test 2.20 mg/dL 0.0-1.0 H code = BILT) SGOT/AST (test code = 253 IUnit/L 15-37 H AST) SGPT/ALT (test code = 213 IUnit/L 30-65 H ALT) ALKALINE PHOSPHATASE 180 IUnit/L 20-125 H TOTAL (test code = ALKP) [id number] 01:59:00 Test Item Value Reference Range Interpretation Comments LIPASE (test code = LIP) 37 U/L 13-57 N [id number] 01:59:00 Test Item Value Reference Range Interpretation Comments TROPONIN-I 0.014 ng/mL 0.000-0.045 N Negative: <= (test code = 0.045 Positive: TROPI) >= 0.046 Correl ation with serial results, other cardiac markers andclin ical findings is necessary to determine the clinicalsignifi cance of this result. Results using different metho dologies should not be c omparedto one another as ramesh titative results may fabiola y by method. LACTIC ACID 2ND [id number] 01:51:00 Test Item Value Reference Range Interpretation Comments LACTIC ACID 2ND REPEAT (test code 6.4 mmol/L 0.4-1.9 HH = LACT2) PROTHROMBIN [id number] 01:48:00 Test Item Value Reference Range Interpretation Comments PROTHROMBIN TIME 13.5 SECONDS 9.3-12.9 H PATIENT (test code = PTP) INTERNATIONAL NORMAL 1.2 0.8-1.2 N TARGET RATIO (test code = INR BY IN DICATION INR) Indication INR1. Prophyl axis of venous thrombos is 2.0 - 3. 0 (orthopedic lizz nisha), Prophylaxis of venous thrombos is (other than hig h-risk surgery), Mona tment of Deep Vein Thrombosis/Pulm onary Embolism, Preve ntion of systemic emb olism - Tissue heart va lves, Acute Myocardia l Infarction (to prevent systemic embo lism), Valvular heart disease, Atri al Fibrillation, Bileaflet mecha nical valve in aortic position.2. Mec hanical prosthetic valv es (high risk), 2.5 - 3.5 Presence of Lupus Anticoagu lant or Antiphospholi pid Antibodies, Pre vention of systemic e mbolism - Acute Myocard ial Infarction (t o prevent recurre nt infarct). THROMBOPLASTIN TIME [id number] 01:48:00 Test Item Value Reference Range Interpretation Comments THROMBOPLASTIN TIME 29.2 Seconds 25.0-39.5 N Ther apeutic PARTIAL (test code = Range: 50.4 - 88.3 PTT) Seconds Effective 06/07/2018 CBC W/AUTO [id number] 01:44:00 Test Item Value Reference Range Interpretation Comments WHITE BLOOD CELL (test code = 11.2 x10 3/uL 4.5-11.0 H WBC) RED BLOOD CELL (test code = 4.26 x10 6/uL 4.00-5.60 N RBC) HEMOGLOBIN (test code = HGB) 14.4 g/dL 12.5-16.9 N HEMATOCRIT (test code = HCT) 41.2 % 37.5-50.7 N MEAN CELL VOLUME (test code = 96.7 fL 81.0-99.0 MCV) MEAN CELL HGB (test code = MCH) 33.8 pg 27.0-33.0 H MEAN CELL HGB CONCETRATION 35.0 g/dL 33.0-37.0 N (test code = MCHC) RED CELL DISTRIBUTION WIDTH CV 14.8 % 11.5-14.5 H (test code = RDW) RED CELL DISTRIBUTION WIDTH SD 53.1 fL 37.0-54.0 N (test code = RDW-SD) PLATELET COUNT (test code = 355 x10 3/uL 150-400 N PLT) MEAN PLATELET VOLUME (test code 10.0 fL 7.0-9.0 H = MPV) NEUTROPHIL % (test code = NT%) 75.0 % 56.0-77.0 N IMMATURE GRANULOCYTE % (test 0.4 % 0.0-2.0 N code = IG%) LYMPHOCYTE % (test code = LY%) 16.7 % 14.0-32.0 N MONOCYTE % (test code = MO%) 7.4 % 4.8-9.0 N EOSINOPHIL % (test code = EO%) 0.1 % 0.3-3.7 L BASOPHIL % (test code = BA%) 0.4 % 0.0-2.0 N NUCLEATED RBC % (test code = 0.0 % 0-0 N NRBC%) NEUTROPHIL # (test code = NT#) 8.43 x10 3/uL 2.0-7.6 H IMMATURE GRANULOCYTE # (test 0.04 x10 3/uL 0.00-0.03 H code = IG#) LYMPHOCYTE # (test code = LY#) 1.88 x10 3/uL 1.0-3.8 N MONOCYTE # (test code = MO#) 0.83 x10 3/uL 0.1-0.8 H EOSINOPHIL # (test code = EO#) 0.01 x10 3/uL 0.0-0.2 N BASOPHIL # (test code = BA#) 0.05 x10 3/uL 0.0-0.2 N NUCLEATED RBC # (test code = 0.00 x10 3/uL 0.0-0.1 N NRBC#) MANUAL DIFF REQUIRED (test code NO = MDIFF) [id number] 23:13:00 Test Item Value Reference Range Interpretation Comments PHOSPHOROUS (test code = PHOS) 3.0 MG/DL 2.5-4.9 N [id number] 23:13:00 Test Item Value Reference Range Interpretation Comments MAGNESIUM (test code 0.65 mg/dL 1.80-2.40 LL Critica l result called = MAG) to NILAM Sumner G.LAB.JN1 at 2312 04/23/20Nurse eleonora barrera back resut and tech confirmed it's correct? Y [id number] 23:13:00 Test Item Value Reference Range Interpretation Comments TROPONIN-I 0.013 ng/mL 0.000-0.045 N Negative: <= (test code = 0.045 Positive: TROPI) >= 0.046 Correl ation with serial results, other cardiac markers andclin ical findings is necessary to determine the clinicalsignifi cance of this result. Results using different metho dologies should not be c omparedto one another as ramesh titative results may fabiola y by method. LACTIC ACID [id number] 23:13:00 Test Item Value Reference Range Interpretation Comments LACTIC ACID REPEAT (test code = 8.8 mmol/l 0.4-1.9 HH LACTR) HGBA1C%2020-04-23 23:06:00 Test Item Value Reference Range Interpretation Comments HGBA1C% (test code = HGBA1C%) 6.3 %A1C 4.8-6.0 H - CT ABD PELVIS W/[id number] 21:52:00 [facility] : 1970 Sex: M Name: BARRETT NEAL [facility] : Age/S: 49 / M [address] [place] [address] Blvd Unit #: [id number] Loc: [place] [id number] Phys: Joey Lockett DO Acct: [id number] Dis Date: Status: ADM IN PHONE #: [phone] Exam Date: 04/23/20202131 FAX #: [phone]: vomiting; sepsis EXAMS: CPT CODE: [id number] CT ABD PELVIS W/CONT 63033 CT ABDOMEN AND PELVIS WITH CONTRAST. INDICATION: Vomiting. Sepsis. COMPARISON: None. TECHNIQUE: Helical imaging was performed from the diaphragm through the pubic symphysis with multiplanar reformations obtained. DOSE: CT imaging performed at this location utilizes radiation dose optimization technique which includes one or more of the followin) Automated exposure control; 2) Adjustment of the mA and/or kV according to patient's size; 3) Use of iterative reconstruction techniques. DLP: 490 mGy-cm IV contrast: 100 mL Isovue-300 GI contrast: None FINDINGS: LOWER CHEST: Left upper lobe calcified granuloma seen. PERITONEUM: No free intraperitoneal air or fluid. RETROPERITONEUM: Abdominal aorta is normal in caliber. No adenopathy a ppreciated. SOLID ORGANS: The liver is diffusely low density. The gallbladder, spleen, pancreas, and bilateral adrenal glands appear normal. 3-4 mm cortical hypodensity seenin superior pole right kidney and inferior pole left kidney. PELVIS: The bladderis filled with fluid. BOWELS/APPENDIX: There are no abnormally dilated small or large bowel loops. The appendix is normal. MUSCULOSKELETAL: Degenerative changes in thespine. IMPRESSION: 1. No acute findings in the abdomen or pelvis.2. Hepatic steatosis. 3. Tiny bilateral renal cortical hypodensities likely representing cysts but too small to characterize by any modality. PAGE 1 Signed Report (CONTINUED) Name: NEALBARRETT [facility] : 1970 Age/S: 49 / M [address] [place] [address] Unit #: [id number] Loc: [place] [address] Phys: Joey Lockett Acct: [id number] Dis Date: Status: ADM IN PHONE #: [phone] Exam Date: 04/23/20202131 FAX #: [phone] Reason: vomiting; sepsisEXAMS: CPT CODE: [id number] CT ABD PELVIS W/CONT 05257 <Continued> SL: SG-H at 2152 Reported and signed by: Yan Palacio M.D. CC: Joey Lockett DO Technologist:Leatha Moy, RT(R) CTDI: DLP: Trnscb Date/Time: 04/23/2020 (2151) [email or web address] Orig Print D/T: S: 04/23/2020 (2154) PAGE 2 Signed ReportLACTIC ACID 2020-04-23 21:01:00 Test Item Value Reference Range Interpretation Comments LACTIC ACID (test 5.6 mmol/L 0.4-1.9 HH Critical r esult called code = LACT) to FATOUM[facility].PTP at 20 57 04/23/20Nurse r ead back result and tech confirmed it's correct? Y - XR CHEST 1 [id number] 18:10:00 [facility] [facility] : 1970 Sex: M FAX: Joey Valadez DO [phone] [place]: St: REG Name: BARRETT NEAL [facility] : 1970 Age/S: 49/M [address] [place] [address] Unit #: [id number] Loc: [place] [address] Phys: Joey Lockett DO Acct: [id number] Dis Date: Status: REG ER PHONE #: [phone] Exam Date: 04/23/2020 1807 FAX #: [phone] Reason: Chest Pain EXAMS: CPT CODE: [id number] XR CHEST 1 V 83463 Portable single view AP chest INDICATION: Chest pain and shortness of breath Comparison: None. FINDINGS:The cardiomediastinal silhouette is normal in size. Lungs are clear. Costophrenic angles are sharp. No suspicious osseous abnormality is seen. IMPRESSION: No evidence for acute cardiopulmonary disease. SL: ANDREW at 1810 Reported and signed by: Yan Palacio M.D. CC: Joey Berger Technologist: RT Polina(Eleonora) Trnscrd Date/Time/By: 04/23/2020 (1809) : By: [email or web address] Orig Print D/T: S: 04/23/2020 (1812) PAGE 1 Signed ReportB-TYPE NATRIURETIC [id number] 17:32:00 Test Item Value Reference Range Interpretation Comments B-TYPE NATRIURETIC PEPTIDE (test 6.0 PG/ML 0-100 N code = BNP) BASIC METABOLIC [id number] 17:25:00 Test Item Value Reference Range Interpretation Comments SODIUM (test code = NA) 137 mEq/L 134-147 N POTASSIUM (test code = 3.0 mEq/L 3.4-5.0 L K) CHLORIDE (test code = 97 mEq/L 100-108 L CL) CARBON DIOXIDE (test 22 mEq/l 21-33 N code = CO2) ANION GAP (test code = 21 0-20 H GAP) GLUCOSE (test code = 226 mg/dL 70-110 H GLU) BLOOD UREA NITROGEN 6 mg/dL 7-18 L (test code = BUN) GLOMERULAR FILTRATION 64.1 90-95 L Units of measure = RATE (test code = GFR) ml/mi n/1.73 m2 CREATININE (test code = 1.2 mg/dL 0.6-1.3 N CREAT) CALCIUM (test code = 8.8 mg/dL 8.0-10.5 N CA) [id number] 17:25:00 Test Item Value Reference Range Interpretation Comments TROPONIN-I 0.010 ng/mL 0.000-0.045 N Negative: <= (test code = 0.045 Positive: TROPI) >= 0.046 Correl ation with serial results, other cardiac markers andclin ical findings is necessary to determine the clinicalsignifi cance of this result. Results using different metho dologies should not be c omparedto one another as ramesh titative results may fabiola y by method. Coronavirus 2019 nCoV [id number] 17:23:00 Test Item Value Reference Range Interpretation Comments Coronavirus 2019 NEGATIVE Negative Negative re sults should be nCoV Bedside (test treated a s presumptive and, code = ifinconsistent with [id number]) clinical signs and symptoms or necessaryfor patient management, maite uld be tested with an alternativemole cular assay. Negative result s do not preclude BZAT-[id number]-0qrsgd tion and should not be u sed as the sole basis forp atient management deci sions. Negative result s should beconsidered in the context of a patient's recent exposures,histo ry, presence of clinical sig ns and symptoms consis tentwith COVID-19. CBC W/AUTO [id number] 17:14:00 Test Item Value Reference Range Interpretation Comments WHITE BLOOD CELL (test code = 7.0 x10 3/uL 4.5-11.0 N WBC) RED BLOOD CELL (test code = 5.05 x10 6/uL 4.00-5.60 N RBC) HEMOGLOBIN (test code = HGB) 16.9 g/dL 12.5-16.9 N HEMATOCRIT (test code = HCT) 47.1 % 37.5-50.7 N MEAN CELL VOLUME (test code = 93.3 fL 81.0-99.0 N MCV) MEAN CELL HGB (test code = MCH) 33.5 pg 27.0-33.0 H MEAN CELL HGB CONCETRATION 35.9 g/dL 33.0-37.0 N (test code = MCHC) RED CELL DISTRIBUTION WIDTH CV 14.6 % 11.5-14.5 H (test code = RDW) RED CELL DISTRIBUTION WIDTH SD 50.2 fL 37.0-54.0 N (test code = RDW-SD) PLATELET COUNT (test code = 462 x10 3/uL 150-400 H PLT) MEAN PLATELET VOLUME (test code 9.4 fL 7.0-9.0 H = MPV) NEUTROPHIL % (test code = NT%) 65.7 % 56.0-77.0 N IMMATURE GRANULOCYTE % (test 0.3 % 0.0-2.0 N code = IG%) LYMPHOCYTE % (test code = LY%) 24.2 % 14.0-32.0 N MONOCYTE % (test code = MO%) 8.6 % 4.8-9.0 N EOSINOPHIL % (test code = EO%) 0.1 % 0.3-3.7 L BASOPHIL % (test code = BA%) 1.1 % 0.0-2.0 N NUCLEATED RBC % (test code = 0.3 % 0-0 H NRBC%) NEUTROPHIL # (test code = NT#) 4.59 x10 3/uL 2.0-7.6 N IMMATURE GRANULOCYTE # (test 0.02 x10 3/uL 0.00-0.03 N code = IG#) LYMPHOCYTE # (test code = LY#) 1.69 x10 3/uL 1.0-3.8 N MONOCYTE # (test code = MO#) 0.60 x10 3/uL 0.1-0.8 N EOSINOPHIL # (test code = EO#) 0.01 x10 3/uL 0.0-0.2 N BASOPHIL # (test code = BA#) 0.08 x10 3/uL 0.0-0.2 N NUCLEATED RBC # (test code = 0.02 x10 3/uL 0.0-0.1 N NRBC#) MANUAL DIFF REQUIRED (test code NO = MDIFF) CBC W/AUTO [id number] 17:12:00 Test Item Value Reference Range Interpretation Comments WHITE BLOOD CELL (test code = WBC) x10 3/uL 4.5-11.0 RED BLOOD CELL (test code = RBC) x10 6/uL 4.00-5.60 HEMOGLOBIN (test code = HGB) 16.9 g/dL 12.5-16.9 N HEMATOCRIT (test code = HCT) 47.1 % 37.5-50.7 N MEAN CELL VOLUME (test code = MCV) fL 81.0-99.0 MEAN CELL HGB (test code = MCH) pg 27.0-33.0 MEAN CELL HGB CONCETRATION (test g/dL 33.0-37.0 code = MCHC) RED CELL DISTRIBUTION WIDTH CV % 11.5-14.5 (test code = RDW) PLATELET COUNT (test code = PLT) x10 3/uL 150-400 NEUTROPHIL % (test code = NT%) % 56.0-77.0 LYMPHOCYTE % (test code = LY%) % 14.0-32.0 NEUTROPHIL # (test code = NT#) x10 3/uL 2.0-7.6 LYMPHOCYTE # (test code = LY#) x10 3/uL 1.0-3.8 MANUAL DIFF REQUIRED (test code = MDIFF)
[2020-06-17] MEDS ORDERED: NA CHLORIDE 0.9% 1,000 ML ONE (12:02)
[2020-06-17 12:17] LABS: Absolute Lymphocytes (CBC) 0.6 K/uL (0.7-4.9); Basophils % 0.5 % (0-1.3); Hematocrit 38.1 % (39.6-49.0); Lymphocytes % 6.6 % (15.3-44.8); MPV 7.5 fL (7.6-11.3); RBC Red Blood Cell Count 4.01 M/uL (4.33-5.43)
[2020-06-17] MEDS ORDERED: ONDANSETRON 4 MG/2 ML VIAL ONE (12:19)
[2020-06-17] MEDS ORDERED: CYCLOBENZAPRINE 10 MG TAB ONE (12:19)
[2020-06-17 12:20] LABS: Protime INR 1.12
[2020-06-17] MEDS ORDERED: LIDOCAINE 4% PATCH ONE (12:21)
[2020-06-17] MEDS ORDERED: PROMETHAZINE INJ 25 MG/ML AMP ONE (12:27)
[2020-06-17] MEDS ORDERED: FAMOTIDINE 20 MG/2 ML VIAL IV ONE (12:27)
--- NOTE | 2020-06-17 12:36 | RAD REPORT ---
EXAM DESCRIPTION: Pablo Single View06/17/2020 12:21 pm CLINICAL HISTORY: Palpitation COMPARISON: March 2020 FINDINGS: The lungs appear clear of acute infiltrate. The heart is normal size IMPRESSION: No acute abnormalities displayed
[2020-06-17 12:47] LABS: ALT/SGPT 72 U/L (12-78); AST/SGOT 40 U/L (15-37); Albumin 3.2 g/dL (3.4-5.0); Alkaline Phosphatase 154 U/L (45-117); BUN Blood Urea Nitrogen 8 mg/dL (7-18); Bicarbonate 22 mmol/L (21-32); Bilirubin Direct 0.2 mg/dL (0-0.2); Bilirubin Total 0.6 mg/dL (0.2-1.0); Blood Morphology Comment NOT SEEN (NOT SEEN); Glucose Level 132 mg/dL (74-106); NT PRO-BNP 150 pg/mL (<125); Platelet Estimate ADEQ; Protein, Total 6.9 g/dL (6.4-8.2); Sodium Level 139 mmol/L (136-145); Troponin (Emerg Dept Use Only) < 0.02 ng/mL (0.0-0.045)
[2020-06-17 12:51] LABS: Potassium 2.7 mmol/L (3.5-5.1)
[2020-06-17] MEDS ORDERED: POTASSIUM 25 MEQ EFFERV TAB ONE ×2 (13:19→16:49)
[2020-06-17] MEDS ORDERED: Magnesium Sulfate 2gm IVPB 2 G/50 ML BAG IV ONE (13:19)
[2020-06-17] MEDS ORDERED: KCL 20 MEQ/100 mL IVPB 20 MEQ/100 ML BAG IV ONE (13:20)
[2020-06-17 13:46] LABS: Urine Blood Negative (Negative); Urine Glucose Negative (Negative); Urine Protein Trace (Negative); Urine pH 8.5 (5.0-7.0)
[2020-06-17 14:01] LABS: Barbiturates NEGATIVE (NEGATIVE); Benzodiazepines NEGATIVE (NEGATIVE); Cocaine NEGATIVE (NEGATIVE); METHAMPHETAM NEGATIVE (NEGATIVE); Methadone NEGATIVE (NEGATIVE); Opiates NEGATIVE (NEGATIVE); Phencyclidine NEGATIVE (NEGATIVE); THC Cannibis NEGATIVE (NEGATIVE)
[2020-06-17 14:34] LABS: SARS-COV-2 RT PCR NEGATIVE (NEGATIVE)
[2020-06-17] MEDS ORDERED: MORPHINE 4 MG/ML SYR ONE (14:35)
[2020-06-17] MEDS ORDERED: KETOROLAC 30 MG/ML INJ ONE (15:59)
[2020-06-17] MEDS ORDERED: HYDROCODONE/APAP 10/325 TAB ONE (16:28)
--- NOTE | 2020-06-17 16:35 | ER ---
Nurse's Notes [facility] Name: Seth Doyle Age: 50 yrs Sex: Male : 1970 Arrival Date: 06/17/2020 Time: 11:17 Bed 8 Private MD: Diagnosis: Hypomagnesemia;Hypokalemia;Low back pain;Muscle spasm Presentation: 06/17 11:21 Chief complaint: Patient states: N/V, dehydration, SOB with hands cramping for 1 day. ll1 Coronavirus screen: Client denies travel out of the [place] in the last 14 days. difficulty breathing, fatigue, nausea, shortness of breath, vomiting. Client presents with at least one sign or symptom that may indicate coronavirus-19. Standard/surgical mask placed on the client. Ebola Screen: Patient denies travel to an Ebola-affected area in the 21 days before illness onset. Initial Sepsis Screen: Does the patient meet any 2 criteria? HR > 90 bpm. No. Patient's initial sepsis screen is negative. Does the patient have a suspected source of infection? No. Patient's initial sepsis screen is negative. Risk Assessment: Do you want to hurt yourself or someone else? Patient reports no desire to harm self or others. Onset of symptoms was June 17, 2020. 11:21 Method Of Arrival: Ambulatory ll1 11:21 Acuity: GREGORY 3 ll1 Historical: - Allergies: 11:23 No Known Allergies; ll1 - PMHx: 11:23 Asthma; Hypertension; ll1 - PSHx: 11:23 wrists sx; ll1 - Immunization history:: Flu vaccine is up to date. - Social history:: Smoking status: Patient denies any tobacco usage or history of. Screenin:35 Abuse screen: Denies threats or abuse. Denies injuries from another. Nutritional jl7 screening: No deficits noted. Tuberculosis screening: No symptoms or risk factors identified. Fall Risk IV access (20 points). Total Jay Fall Scale indicates No Risk (0-24 pts). Assessment: 12:00 Reassessment: Pt reports drinking a sugar free red bull, about an hour later he began jl7 vomiting, shaking and filling ill. Also reports jumping on a trampoline this weekend so his low back is hurting. Denies chest pain and SOB, reports heartburn. 12:26 General: Appears in no apparent distress. uncomfortable, ill, Behavior is cooperative, jl7 anxious. Pain: Complains of pain in low back area Pain currently is 8 out of 10 on a pain scale. Pain began 2-3 days ago. Is continuous. Neuro: Level of Consciousness is awake, alert, obeys commands, Oriented to person, place, time, situation. Cardiovascular: Denies chest pain, shortness of breath, Patient's skin is warm and dry. Respiratory: Airway is patent Respiratory effort is even, unlabored, Respiratory pattern is regular, symmetrical, Denies shortness of breath. GI: Abdomen is non-distended, Reports nausea, vomiting. Derm: Skin is pink, warm \T\ dry. 13:30 Reassessment: Patient appears in no apparent distress at this time. Patient and/or jl7 family updated on plan of care and expected duration. Pain level reassessed. Patient is alert, oriented x 3, equal unlabored respirations, skin warm/dry/pink. 14:30 Reassessment: Patient appears in no apparent distress at this time. No changes from 7 previously documented assessment. Patient and/or family updated on plan of care and expected duration. Pain level reassessed. Patient is alert, oriented x 3, equal unlabored respirations, skin warm/dry/pink. 15:30 Reassessment: Patient appears in no apparent distress at this time. No changes from jl7 previously documented assessment. Patient and/or family updated on plan of care and expected duration. Pain level reassessed. Patient is alert, oriented x 3, equal unlabored respirations, skin warm/dry/pink. 16:35 Reassessment: ERP at bedside discussing results and POC. jl7 Vital Signs: 11:21 BP 174 / 97; Pulse 101; Resp 22; Temp 97.2; Pulse Ox 98% on R/A; Weight 97.98 kg; ll1 Height 6 ft. 1 in. (185.42 cm); Pain 8/10; 12:34 BP 165 / 106; Pulse 89; Resp 19; Temp 98.9; Pulse Ox 96% ; jl7 13:59 BP 156 / 108; Pulse 92; Resp 15; Pulse Ox 97% ; ld1 15:50 BP 167 / 95; Pulse 85; Resp 15; Pulse Ox 97% ; jl7 11:21 Body Mass Index 28.50 (97.98 kg, 185.42 cm) ll1 ED Course: 11:17 Patient arrived in ED. am2 11:22 Triage completed. ll1 11:23 Arm band placed on Patient placed in an exam room, on a stretcher. ll1 11:29 Zain Hernandez, RN is Primary Nurse. jl7 11:30 Patient has correct armband on for positive identification. Placed in gown. Bed in low jl7 position. Call light in reach. Side rails up X2. patient monitor on. Pulse ox on. NIBP on. Warm blanket given. 11:43 Guilherme Edmondson, BONE GLUE MAKER is PHCP. pm1 11:43 Carlos Layton MD is Attending Physician. pm1 12:00 Initial lab(s) drawn, by me, sent to lab. EKG done, by ED staff, reviewed by Guilherme Edmondson NP. Inserted saline lock: 20 gauge in right forearm, using aseptic technique. Blood collected. 12:10 XRAY Chest (1 view) In Process Unspecified. EDMS 17:14 No provider procedures requiring assistance completed. IV discontinued, intact, jl7 bleeding controlled, No redness/swelling at site. Pressure dressing applied. Administered Medications: 12:00 Drug: NS 0.9% 1000 ml Route: IV; Rate: 1000 ml; Site: right forearm; jl7 13:00 Follow up: Response: No adverse reaction; IV Status: Completed infusion; IV Intake: jl7 1000ml 12:00 Drug: Lidoderm 5 % (700 mg/patch) 1 patches Route: Topical; Site: affected area; jl7 12:30 Follow up: Response: No adverse reaction; Pain is unchanged, physician notified jl7 12:05 Drug: Zofran (Ondansetron) 4 mg Route: IVP; Site: right forearm; jl7 12:10 Follow up: Response: No adverse reaction; Nausea unchanged jl7 12:13 Drug: Phenergan (promethazine) 12.5 mg Route: IVP; Site: right forearm; jl7 12:40 Follow up: Response: No adverse reaction; Nausea is decreased jl7 12:18 Drug: Pepcid (famotidine) 20 mg Route: IVP; Site: right forearm; jl7 12:45 Follow up: Response: No adverse reaction; Marked relief of symptoms jl7 12:32 Drug: Flexeril (cyclobenzaprine) 10 mg Route: PO; jl7 14:12 Follow up: Response: Pain is unchanged, physician notified jl7 13:00 Drug: Magnesium Sulfate 2 grams Route: IVPB; Infused Over: 2 hrs; Site: right forearm; jl7 15:00 Follow up: Response: No adverse reaction; IV Status: Completed infusion jl7 13:00 Drug: Potassium Chloride 20 mEq Route: IV; Rate: calculated rate; Site: right forearm; jl7 15:00 Follow up: Response: No adverse reaction; IV Status: Completed infusion jl7 13:00 Drug: Potassium Effervescent Tablet 50 mEq Route: PO; jl7 14:12 Follow up: Response: No adverse reaction jl7 14:19 Drug: morphine 4 mg Route: IVP; Site: right antecubital; ld1 14:45 Follow up: Response: Pain is unchanged, physician notified jl7 15:46 Drug: TORadol (ketorolac) 30 mg Route: IVP; Site: right forearm; jl7 16:18 Follow up: Response: No adverse reaction; Pain is unchanged, physician notified jl7 16:18 Drug: HYDROcodone-acetaminophen 10 mg-325 mg 1 tabs Route: PO; jl7 16:45 Follow up: Response: No adverse reaction jl7 17:06 Drug: Potassium Effervescent Tablet 50 mEq Route: PO; jl7 17:18 Follow up: Response: No adverse reaction jl7 Intake: 13:00 IV: 1000ml; Total: 1000ml. jl7 Outcome: 16:35 Discharge ordered by MD. pm1 17:14 Discharged to home ambulatory. jl7 17:14 Condition: stable 17:14 Discharge instructions given to patient, Instructed on discharge instructions, follow up and referral plans. medication usage, Demonstrated understanding of instructions, follow-up care, medications, Prescriptions given X 3. 17:18 Patient left the ED. jl7 Signatures: Dispatcher [employer] EDMS Guilherme Edmondson NP BONE GLUE MAKER pm1 Zain Hernandez RN RN jl7 Caitlin Snider am2 Acacia Navas RN RN ll1 Medina Nur RN RN ld1
--- NOTE | 2020-06-17 16:35 | EDPHYS ---
Physician Documentation [facility] Name: Seth Doyle Age: 50 yrs Sex: Male : 1970 Arrival Date: 06/17/2020 Time: :17 Bed 8 Private MD: ED Physician Carlos Layton HPI: 06/17 12:03 This 50 yrs old Male presents to ER via Ambulatory with complaints of pm1 Dehydration. 12:03 The patient presents to the emergency department with nausea, vomiting. pm1 12:03 Onset: The symptoms/episode began/occurred 1 day(s) ago. Possible causes: dehydration. pm1 The symptoms are aggravated by nothing. The symptoms are alleviated by nothing. Associated signs and symptoms: Pertinent positives: Shortness of breath, bilateral hand cramping. The patient has not experienced similar symptoms in the past. The patient has not recently seen a physician. Patient was jumping on a trampoline 3 days ago and injured his back. History of herniated discs. Did not fall or hit his back on any object. Historical: - Allergies: 11:23 No Known Allergies; ll1 - PMHx: 11:23 Asthma; Hypertension; ll1 - PSHx: 11:23 wrists sx; ll1 - Immunization history:: Flu vaccine is up to date. - Social history:: Smoking status: Patient denies any tobacco usage or history of. Vital Signs: 11:21 BP 174 / 97; Pulse 101; Resp 22; Temp 97.2; Pulse Ox 98% on R/A; Weight 97.98 kg; ll1 Height 6 ft. 1 in. (185.42 cm); Pain 8/10; 12:34 BP 165 / 106; Pulse 89; Resp 19; Temp 98.9; Pulse Ox 96% ; jl7 13:59 BP 156 / 108; Pulse 92; Resp 15; Pulse Ox 97% ; ld1 15:50 BP 167 / 95; Pulse 85; Resp 15; Pulse Ox 97% ; jl7 11:21 Body Mass Index 28.50 (97.98 kg, 185.42 cm) ll1 MDM: 11:44 Patient medically screened. matthew 15:57 Data reviewed: vital signs. Data interpreted: Pulse oximetry: on room air is 97 %. pm1 Interpretation: normal. Counseling: I had a detailed discussion with the patient and/or guardian regarding: the historical points, exam findings, and any diagnostic results supporting the discharge/admit diagnosis, lab results, radiology results, the need for outpatient follow up, to return to the emergency department if symptoms worsen or persist or if there are any questions or concerns that arise at home. 16:27 Data reviewed: I have discussed the patient's presentation/case with the attending pm1 Emergency Department Physician; and as a result, I will discharge patient, administer potassium, orally, 50 meq more and Gatorade. 06/17 11:43 Order name: Basic Metabolic Panel; Complete Time: 12:53 pm06/17 11:43 Order name: CBC with Diff; Complete Time: 12:51 pm06/17 11:43 Order name: LFT's; Complete Time: 12:53 pm06/17 11:43 Order name: Magnesium; Complete Time: 12:53 pm06/17 11:43 Order name: NT PRO-BNP; Complete Time: 12:53 pm06/17 11:43 Order name: PT-INR; Complete Time: 12:35 pm06/17 11:43 Order name: Troponin (emerg Dept Use Only); Complete Time: 12:53 pm06/17 11:53 Order name: UDS; Complete Time: 14:03 pm06/17 12:36 Order name: Strep; Complete Time: 13:14 pm06/17 12:47 Order name: Manual Differential; Complete Time: 12:51 EDMS 06/17 13:12 Order name: Throat Culture EDNJ 06/17 13:46 Order name: Urine Dipstick-Ancillary; Complete Time: 13:56 EDNJ 06/17 11:43 Order name: XRAY Chest (1 view); Complete Time: 12:39 pm06/17 11:43 Order name: EKG; Complete Time: 11:44 pm06/17 14:34 Order name: COVID-19/FLU A+B; Complete Time: 14:52 ED06/17 11:43 Order name: Cardiac monitoring; Complete Time: 12:34 pm06/17 11:43 Order name: EKG - Nurse/Tech; Complete Time: 12:34 pm06/17 11:43 Order name: IV Saline Lock; Complete Time: 12:34 pm06/17 11:43 Order name: Labs collected and sent; Complete Time: 12:34 pm1 06/17 11:43 Order name: O2 Per Protocol; Complete Time: 12:34 pm1 06/17 11:43 Order name: O2 Sat Monitoring; Complete Time: 12:34 pm1 06/17 11:53 Order name: Urine Dipstick-Ancillary (obtain specimen); Complete Time: 15:49 pm1 06/17 12:36 Order name: Droplet/Contact Precautions; Complete Time: 12:38 pm1 Administered Medications: 12:00 Drug: NS 0.9% 1000 ml Route: IV; Rate: 1000 ml; Site: right forearm; jl7 13:00 Follow up: Response: No adverse reaction; IV Status: Completed infusion; IV Intake: jl7 1000ml 12:00 Drug: Lidoderm 5 % (700 mg/patch) 1 patches Route: Topical; Site: affected area; jl7 12:30 Follow up: Response: No adverse reaction; Pain is unchanged, physician notified jl7 12:05 Drug: Zofran (Ondansetron) 4 mg Route: IVP; Site: right forearm; jl7 12:10 Follow up: Response: No adverse reaction; Nausea unchanged jl7 12:13 Drug: Phenergan (promethazine) 12.5 mg Route: IVP; Site: right forearm; jl7 12:40 Follow up: Response: No adverse reaction; Nausea is decreased jl7 12:18 Drug: Pepcid (famotidine) 20 mg Route: IVP; Site: right forearm; jl7 12:45 Follow up: Response: No adverse reaction; Marked relief of symptoms jl7 12:32 Drug: Flexeril (cyclobenzaprine) 10 mg Route: PO; jl7 14:12 Follow up: Response: Pain is unchanged, physician notified jl7 13:00 Drug: Magnesium Sulfate 2 grams Route: IVPB; Infused Over: 2 hrs; Site: right forearm; jl7 15:00 Follow up: Response: No adverse reaction; IV Status: Completed infusion jl7 13:00 Drug: Potassium Chloride 20 mEq Route: IV; Rate: calculated rate; Site: right forearm; jl7 15:00 Follow up: Response: No adverse reaction; IV Status: Completed infusion jl7 13:00 Drug: Potassium Effervescent Tablet 50 mEq Route: PO; jl7 14:12 Follow up: Response: No adverse reaction jl7 14:19 Drug: morphine 4 mg Route: IVP; Site: right antecubital; ld1 14:45 Follow up: Response: Pain is unchanged, physician notified jl7 15:46 Drug: TORadol (ketorolac) 30 mg Route: IVP; Site: right forearm; jl7 16:18 Follow up: Response: No adverse reaction; Pain is unchanged, physician notified jl7 16:18 Drug: HYDROcodone-acetaminophen 10 mg-325 mg 1 tabs Route: PO; jl7 16:45 Follow up: Response: No adverse reaction jl7 17:06 Drug: Potassium Effervescent Tablet 50 mEq Route: PO; jl7 17:18 Follow up: Response: No adverse reaction jl7 Disposition: 06/18 07:22 Co-signature as Attending Physician, Carlos Layton MD I agree with the assessment and matthew plan of care. Disposition: 06/17/20 16:35 Discharged to Home. Impression: Hypomagnesemia, Hypokalemia, Low back pain, Muscle spasm. - Condition is Stable. - Discharge Instructions: Back Pain, Adult, Potassium Content of Foods, Hypomagnesemia, Muscle Cramps and Spasms, Hypokalemia. - Prescriptions for Tylenol- Codeine #3 300-30 mg Oral Tablet - take 2 tablets by ORAL route every 4-6 hours As needed; 20 tablet. Cyclobenzaprine 10 mg Oral Tablet - take 1 tablet by ORAL route every 8 hours As needed; 30 tablet. Diclofenac Sodium 75 mg Oral Tablet, Delayed Release (E.C.) - take 1 tablet by ORAL route 2 times per day As needed; 30 tablet. - Medication Reconciliation Form, Thank You Letter, Antibiotic Education, Prescription Opioid Use, Work release form form. - Follow up: Emergency Department; When: As needed; Reason: Worsening of condition. Follow up: Private Physician; When: 2 - 3 days; Reason: Recheck today's complaints, Continuance of care, Re-evaluation by your physician. - Problem is new. - Symptoms have improved. Addendum: 07/08/2020 01:28 Addendum: ROS: Constitutional: Negative for fever, chills, and weight loss. Eyes: p m1 Negative for injury, pain, redness, and discharge. Cardiovascular: Negative for chest pain, palpitations, and edema. Respiratory: positive for shortness of breath. negative for cough, wheezing. Abdomen: Negative for abdominal pain, nausea, vomiting, diarrhea. Back: Positive for injury and low back pain. : Negative for injury and deformity. Positive for bilateral hand cramping. Skin: Negative for injury, rash, and discoloration. Neuro: Negative for headache, numbness, tingling, and seizure. Positive for generalized weakness. . Addendum: Exam: Constitutional: This is a well developed, well nourished patient who is awake, alert, and in no acute distress. Head/face: Normocephalic, atraumatic. Eyes: Exam is negative for acute changes. Conjunctiva normal. lids and lashes appear normal. ENT: Ear canals clear bilaterally. TM WNL bilaterally. Mucous membranes moist, pink. Respiratory: Lungs have equal breath sounds bilaterally, clear to auscultation. No rales, rhonchi, wheezing. Cardiovascular: Exam negative for acute changes. Rate: normal, rhythm. normal, pulses: no deficits, no edema. Normal S1, S2. Abdomen/GI: Inspection: normal. Palpation: soft, in all quadrants, no tenderness. Back: Muscle spasm present to lower back. No vertebral tenderness. MS/Extremity: Pulses equal, no cyanosis. Neurovascular intact. FROM intact to all extremities. Neuro: Orientation is normal. mentation is normal. Motor is normal. 07/09/2020 07:17 Co-signature as Attending Physician, Carlos Layton MD I agree with the assessment and c jim plan of care. Signatures: Dispatcher [employer] EDNJ Carlos Layton MD MD cha Marinas, Patrick, POWDER EXPERT POWDER EXPERT pm1 Zain Hernandez RN RN jl7 Acacia Navas RN RN ll1 Medina Nur RN RN ld1 Corrections: (The following items were deleted from the chart) 06/17 13:18 12:36 CORONAVIRUS+MR.LAB.BRZ ordered. EDNJ EDMS 13:18 12:36 Influenza Screen (A \T\ B)+BA.LAB.BRZ ordered. EDNJ EDMS 17:18 16:35 06/17/2020 16:35 Discharged to Home. Impression: Hypomagnesemia; Hypokalemia; Low jl7 back pain; Muscle spasm. Condition is Stable. Forms are Medication Reconciliation Form, Thank You Letter, Antibiotic Education, Prescription Opioid Use. Follow up: Emergency Department; When: As needed; Reason: Worsening of condition. Follow up: Private Physician; When: 2 - 3 days; Reason: Recheck today's complaints, Continuance of care, Re-evaluation by your physician. Problem is new. Symptoms have improved. pm1
[2020-06-17 17:31] VITALS: TEMP 98.9
[2020-06-17 17:32] VITALS: O2SAT 97
[2020-06-17 17:33] VITALS: BP 167/95
--- NOTE | 2020-06-18 11:16 | EKG ---
Test Date: 2020-06-17 Test Time: 11:55:26 Surgeon'S Assistant: MINDA MEASUREMENT RESULTS: Intervals: Rate: 89 PA: 132 QRSD: 92 QT: 412 QTc: 501 [place]: P: 60 PA: 132 QRS: 63 T: 68 INTERPRETIVE STATEMENTS: Normal sinus rhythm Prolonged QT Abnormal ECG Compared to ECG 03/26/2020 13:58:52 Prolonged QT interval now present Sinus tachycardia no longer present Electronically Signed On 06-18-20 11:13:37 CDT by Javad Guerrero
== END 2020-06-17 17:18 | disposition home or self-care (01) ==
LOC: ER 11:14
DX: E87.6 Hypokalemia (principal); E83.42 Hypomagnesemia; M62.830 Muscle spasm of back; M54.5 Low back pain; Z20.822 Contact with and (suspected) exposure to COVID-19; I10 Essential (primary) hypertension
CPT/HCPCS: 93005; 87070; 85025; 80048; 36415; 83735; 85610; 80076; 87081; 80307 ×8; 81003; 84484; 83880; 0240U; 71045; 99285; J2550; J3480; J3475; J7030; J2405